=== PATIENT | male | born 1995 | race Caucasian/White ===

== ENCOUNTER 2016-05-27 09:36 | Emergency (ER) | payer OTHER ==
[2016-05-27 09:42] VITALS: RESP 16; O2SAT 98
--- NOTE | 2016-05-27 10:20 | DX ---
Right Hand, Three Views 10:04 a.m. Clinical History: 20-year-old male with pain after a fall. Comparison Study: None. Findings: There is an acute, transversely-oriented fracture involving the mid-diaphyseal portion of t he 4th metacarpal with dorsal apex angulation. There is also a partially comminuted fracture involvin g the metaphyseal base of the 5th metacarpal. The radiocarpal and intercarpal alignments are maintain ed. There is no radiopaque foreign body. Impression: Acute fractures involving the 4th and 5th metacarpals, as-detailed.
--- NOTE | 2016-05-27 11:00 | EDPHY ---
H & P Stated Complaint: fall on ice 1 hour ago. pain to right hand, full rom, pain and swelling nte Source: Patient Exam Limitations: No limitations - Personal History Current Tetanus/Diphtheria Vaccine: Yes Current Tetanus Diphtheria and Acellular Pertussis (TDAP): Yes - Medical/Surgical History Hx Asthma: No Hx Chronic Respiratory Disease: No Hx Diabetes: No Hx Cardiac Disease: No Hx Renal Disease: No Hx Cirrhosis: No Hx Alcoholism: No Hx HIV/AIDS: No Hx Splenectomy or Spleen Trauma: No Other PMH: PMH: none. PSH:dental - Social History Smoking Status: Never smoked HPI/ROS: CHIEF COMPLAINT: Right hand pain, fall HISTORY OF PRESENT ILLNESS: fell early this morning, striking the dorsum of his hand on the ground. Complains of a moderate to severe pain in the dorsum of the right hand over the 4th and 5th metacarpals. There is no ipsilateral wrist, forearm or elbow pain. He has no numbness or tingling. Range of motion is intact but painful. No cyanosis, pallor. No injuries anywhere else. The pain is worse with any palpation or movement. Improved at rest. Does not radiate. No other associated complaints or modifying factors. REVIEW OF SYSTEMS: Ten systems reviewed and are negative unless otherwise noted in the HPI EXAMINATION General Appearance: Alert, no distress Head: normocephalic, atraumatic Eyes: Pupils equal and round, no conjunctival pallor or injection ENT, Mouth: Mucous membranes moist Neck: Normal inspection, supple, non-tender Respiratory: no respiratory distress Cardiovascular: regular rate. Pulses are intact distally with symmetric DP and PT is and radial pulses Gastrointestinal: no distention Neurological: A&O, nonfocal, normal gait. 2 point sensation intact in the right upper extremity. Strength 5/5 in the right upper Extremity Skin: Warm and dry, no rash, mild edema and erythema to the dorsum of the right hand medially Extremities: tenderness to palpation of the dorsum of the right hand over the 4th and 5th metacarpals. There is crepitus. There is brisk cap refill in all 5 fingers. Range of motion is intact without pain in the ipsilateral wrist and elbow. MDM: 10:45 Mechanical fall with blunt trauma to the right hand. There are fractures of the 4th and 5th metacarpals as noted in the radiology report. Mild dorsal angulation. He remains neurovascularly intact distally with a normal cascade without any rotational deformity. We are consulting in surgeon for evaluation of the film and outpatient care. He remains comfortable at this time. 11:20 Spoke with the PA on-call for the hand surgeon Dr. Amato, and they will review the images and return our phone call with further orders. 11:25 PA aviation safety equipment technician (Fatimah) he has informed us that there is no need to attempt to reduce the fracture. She informed us that we should place him in an ulnar gutter and they would like to see him in the office in 3-5 days. I discussed this with the patient, they are comfortable with this plan. We discussed return to the emergency department precautions. Discharged home stable condition, neurovascularly intact SUPERVISION: Patient was evaluated in conjunction with Dr. Khan. Please see their note for details. (Xavi Cr) Constitutional: Initial Vital Signs Temperature (C) 36.4 C 05/27/16 09:40 Heart Rate 74 05/27/16 09:40 Respiratory Rate 16 05/27/16 09:40 Blood Pressure 140/67 H 05/27/16 09:40 O2 Sat (%) 98 05/27/16 09:40 O2 Delivery Mode Room Air Allergies/Adverse Reactions: No Known Allergies Allergy (Unverified 05/27/16 09:43) Home Medications: Medication Instructions Recorded oxyCODONE HCL/ACETAMINOPHEN 1 each PO Q4-6PRN PRN #20 tablet 05/27/16 [Percocet 5-325 mg Tablet] Medical Decision Making ED Course/Re-evaluation: I have evaluated and participated in the management of this patient. My co- signature indicates that I have reviewed this chart and that I agree with the findings and the plan of care as documented. My personal history and physical findings include: Swelling and deformity to the dorsal aspect of the right hand , overlying 4th and 5th carpals and metacarpals. He has full flexion and extension of all digits of the right hand. There is no rotational deformity. Right radial pulse 2 +. Sensation intact to light touch over the distal right arm and the hand. I reviewed the x-ray. (Mitali Khan) Departure - Departure Disposition: Home, Routine, Self-Care Clinical Impression: Hand fracture, right Condition: Good Instructions: Hand Fracture (ED), Splint Care (ED) [place]errals: [place],. [Primary Care Provider] - As per Instructions Mehdi Amato MD [Medical Doctor] - As per Instructions Prescriptions: oxyCODONE HCL/ACETAMINOPHEN [Percocet 5-325 mg Tablet] 1 each PO Q4-6PRN PRN # 20 tablet PRN Reason: Pain, Moderate
[2016-05-27 12:04] VITALS: BP 142/71; PULSE 71; TEMP 97.7
== END 2016-05-27 12:04 | disposition home or self-care (01) ==
DX: S62.306A Unspecified fracture of fifth metacarpal bone, right hand, initial encounter for closed fracture (principal); S62.304A Unspecified fracture of fourth metacarpal bone, right hand, initial encounter for closed fracture; W00.0XXA Fall on same level due to ice and snow, initial encounter